=== PATIENT | male | born 1965 | race African-American/Black ===

== ENCOUNTER 2021-08-27 09:12 | Emergency (ER) | payer OTHER, MEDICAID ==
[~2021-08-27] VITALS: Ht 172.7 cm; Wt 93.0 kg
[2021-08-27] MEDS ORDERED: LIDOCAINE 5% PATCH TOP SCH (09:45)
[2021-08-27] MEDS ORDERED: ACETAMINOPHEN 325MG TABLET PO ONE (09:45)
[2021-08-27 10:20] VITALS: BP 159/93
[2021-08-27] MEDS ORDERED: BACL-141 MT (11:08)
[2021-08-27] MEDS ORDERED: ACET-2708 MT (11:08)
[2021-08-27] MEDS ORDERED: LIDO700A15 TP (11:08)
== END 2021-08-27 11:55 | disposition home or self-care (01) ==
LOC: ER 09:12
DX: R07.89 Other chest pain (principal); M25.522 Pain in left elbow; R94.31 Abnormal electrocardiogram [ECG] [EKG]
CPT/HCPCS: 36415; 71101; 73080; 84484; 93005; 99285

== ENCOUNTER 2023-07-11 12:27 | Emergency (ER) | payer MEDICAID ==
[~2023-07-11] VITALS: Ht 177.8 cm; Wt 120.0 kg
[~2023-07-11 12:27] MED LIST: ACET-2708 MT; BACL-141 MT; LIDO700A15 TP
[2023-07-11 12:32] VITALS: O2SAT 100
[2023-07-11] MEDS ORDERED: IBUPROFEN 400MG TABLET PO ONE (13:00)
[2023-07-11] MEDS ORDERED: ACETAMINOPHEN 325MG TABLET PO ONE (13:00)
[2023-07-11] MEDS ORDERED: LIDOCAINE 5% PATCH TOP SCH (13:00)
[2023-07-11 14:34] VITALS: BP 194/77; PULSE 96; RESP 18; TEMP 98.5
[2023-07-11] MEDS ORDERED: LIDO700A30 TP (14:54)
== END 2023-07-11 15:12 | disposition home or self-care (01) ==
LOC: ER 13:55
DX: M79.605 Pain in left leg (principal); M25.511 Pain in right shoulder; I10 Essential (primary) hypertension
CPT/HCPCS: 73030; 93971; 99284

== ENCOUNTER → 2024-10-14 | Outpatient (CLI) | payer BC ==
[~2024-10-14] MED LIST changes: +LIDO700A30 TP
[2024-10-14 11:58] LABS: BASOPHILS % 0.6 % (0.0-2.0); DIFFERENTIAL COMMENT 0; EOSINOPHILS % 1.4 % (0.0-5.0); HEMATOCRIT. 42.9 % (42.0-52.0); HEMOGLOBIN. 14.5 g/dL (14.0-18.0); LYMPHOCYTES % 34.4 % (20.0-50.0); MEAN CORPUSCULAR HEMOGLOBIN 31.2 pg (28.0-32.0); MEAN CORPUSCULAR HGB CONC 33.8 g/dL (31.0-37.0); MEAN CORPUSCULAR VOLUME 92.2 fL (80.0-94.0); MONOCYTES % 7.6 % (2.0-8.0); PLATELET 238 x1000/uL (130-400); RED BLOOD CELL COUNT 4.65 mill/uL (4.7-6.1); RED CELL DISTRIBUTION WIDTH 13.4 % (11.6-14.6); WHITE BLOOD COUNT 8.3 x1000/uL (4.5-11.0)
[2024-10-14 12:07] LABS: CLARITY URINE CLEAR (CLEAR); COLOR URINE YELLOW (YELLOW); GLUCOSE URINE NEGATIVE (NEGATIVE); KETONES URINE NEGATIVE (NEGATIVE); LEUKOCYTE ESTERASE URINE NEGATIVE (NEGATIVE); NITRITE URINE NEGATIVE (NEGATIVE); OCCULT BLOOD URINE NEGATIVE (NEGATIVE); PROTEIN URINE NEGATIVE (NEGATIVE)
[2024-10-14 12:26] LABS: CHLORIDE 108 mEq/L (98-107); POTASSIUM 3.9 mEq/L (3.5-5.1); SODIUM 140 mEq/L (136-145)
[2024-10-14 12:27] LABS: CALCIUM 9.3 mg/dL (8.7-10.4); CARBON DIOXIDE 28 mEq/L (21-32)
[2024-10-14 12:31] LABS: ALANINE AMINOTRANSFERASE 32 IU/L (10-49); ASPARTATE AMINOTRANSFERASE 23 IU/L (<34); PROTEIN TOTAL 7.3 g/dL (6.0-8.3)
[2024-10-14 12:32] LABS: CREATININE 0.9 mg/dL (0.6-1.3); GLUCOSE 94 mg/dL (70-105); IRON 103 ug/dL (65-175); TRIGLYCERIDE 70 mg/dL (0-150); UREA NITROGEN BLOOD 12 mg/dL (9-23); URIC ACID 5.4 mg/dL (3.7-9.2)
[2024-10-14 12:33] LABS: LDL CHOLESTEROL 121 mg/dL (5-100)
[2024-10-14 12:34] LABS: BILIRUBIN TOTAL 0.6 mg/dL (0.1-1.0); CHOLESTEROL 182 mg/dL (<200); HDL CHOLESTEROL 42 mg/dL (>55); THYROID STIMULATING HORMONE 1.08 uIU/mL (0.55-4.78)
[2024-10-14 12:35] LABS: FOLIC ACID (FOLATE) SERUM 16.71 ng/mL (>5.38)
[2024-10-14 12:37] LABS: FERRITIN 66 ng/mL (22-322)
[2024-10-14 12:40] LABS: VITAMIN B12 SERUM 1135 pg/mL (211-911)
[2024-10-14 12:48] LABS: HEPATITIS B SURFACE ANTIGEN NEGATIVE (Negative)
[2024-10-14 13:09] LABS: HEPATITIS B CORE AB IGM NEGATIVE (Negative)
[2024-10-14 13:10] LABS: HEPATITIS A AB IGM NEGATIVE (Negative); HEPATITIS C AB NON REACTIVE (Neg) (Negative)
[2024-10-16 08:11] LABS: PROSTATE SPECIFIC AG TOTAL 2.2 ng/mL (0.0-4.0); VITAMIN D 25-OH 22.2 ng/mL (30.0-100.0)
== END | disposition home or self-care (01) ==
LOC: LAB 10:56
PROVIDERS: ATTEND Internal Medicine Geriatric Medicine
DX: I10 Essential (primary) hypertension (principal); R22.9 Localized swelling, mass and lump, unspecified; E66.9 Obesity, unspecified
CPT/HCPCS: 36415; 80053; 80061; 81003; 82306; 82607; 82728; 82746; 83036; 83540; 84153; 84443; 84550; 85025; 86592; 86705; 86709; 86900; 87340

== ENCOUNTER → 2024-10-22 | Outpatient (CLI) | payer BC | END | disposition home or self-care (01) | LOC: EDSTATUS 10-15 09:08 → CARD 08:57 | PROVIDERS: ATTEND Internal Medicine Geriatric Medicine | DX: I34.0 Nonrheumatic mitral (valve) insufficiency (principal); I10 Essential (primary) hypertension; R60.9 Edema, unspecified | CPT/HCPCS: 93306 ==

== ENCOUNTER → 2025-02-19 | Outpatient (CLI) | payer BC ==
[~2025-02-19] MED LIST changes: +LIDO-53 TP; -LIDO700A15 TP
[2025-02-19 09:42] LABS: EOSINOPHILS % 1.6 % (0.0-5.0); HEMATOCRIT. 42.4 % (42.0-52.0); HEMOGLOBIN. 14.5 g/dL (14.0-18.0); MEAN CORPUSCULAR HEMOGLOBIN 31.3 pg (28.0-32.0); MEAN CORPUSCULAR HGB CONC 34.2 g/dL (31.0-37.0); MEAN CORPUSCULAR VOLUME 91.5 fL (80.0-94.0); MEAN PLATELET VOLUME 9.9 fl (7.4-10.4); NEUTROPHILS % 53.4 % (40.0-76.0); PLATELET 205 x1000/uL (130-400); RED BLOOD CELL COUNT 4.63 mill/uL (4.7-6.1); RED CELL DISTRIBUTION WIDTH 13.4 % (11.6-14.6); WHITE BLOOD COUNT 7.6 x1000/uL (4.5-11.0)
[2025-02-19 09:51] LABS: CHLORIDE 104 mEq/L (98-107); POTASSIUM 4.2 mEq/L (3.5-5.1); SODIUM 140 mEq/L (136-145)
[2025-02-19 09:52] LABS: CALCIUM 9.3 mg/dL (8.7-10.4); CARBON DIOXIDE 30 mEq/L (21-32)
[2025-02-19 09:57] LABS: CREATININE 0.9 mg/dL (0.6-1.3); GLUCOSE 114 mg/dL (70-105)
[2025-02-19 09:58] LABS: LDL CHOLESTEROL 109 mg/dL (5-100); TRIGLYCERIDE 81 mg/dL (0-150); UREA NITROGEN BLOOD 11 mg/dL (9-23)
[2025-02-19 09:59] LABS: ALANINE AMINOTRANSFERASE 29 IU/L (10-49); ALBUMIN 4.2 g/dL (3.2-4.8); ASPARTATE AMINOTRANSFERASE 26 IU/L (<34); CHOLESTEROL 168 mg/dL (<200); HDL CHOLESTEROL 47 mg/dL (>55)
[2025-02-19 10:00] LABS: BILIRUBIN TOTAL 0.6 mg/dL (0.1-1.0); PROTEIN TOTAL 6.9 g/dL (6.0-8.3)
== END | disposition home or self-care (01) ==
LOC: MRI 07:58
PROVIDERS: ATTEND Internal Medicine Geriatric Medicine
DX: S31.010A Laceration without foreign body of lower back and pelvis without penetration into retroperitoneum, initial encounter (principal); M51.16 Intervertebral disc disorders with radiculopathy, lumbar region; M47.26 Other spondylosis with radiculopathy, lumbar region; M47.818 Spondylosis without myelopathy or radiculopathy, sacral and sacrococcygeal region; M48.07 Spinal stenosis, lumbosacral region; M53.3 Sacrococcygeal disorders, not elsewhere classified; M25.78 Osteophyte, vertebrae; M54.50 Low back pain, unspecified; I10 Essential (primary) hypertension; R73.03 Prediabetes; X58.XXXA Exposure to other specified factors, initial encounter; Y93.89 Activity, other specified; Y92.89 Other specified places as the place of occurrence of the external cause; Y99.8 Other external cause status
CPT/HCPCS: 36415; 72148; 80053; 80061; 83036; 85025